=== PATIENT | male | born 1970 | race Two or more races ===

== ENCOUNTER 2025-02-17 10:54 | Emergency (ER) | payer OTHER, SELFPAY ==
[2025-02-17 10:55] VITALS: BMI 39.9
[2025-02-17 11:23] VITALS: BP 168/102; PULSE 83; RESP 18; TEMP 37.2; O2SAT 96
--- NOTE | 2025-02-17 11:28 | XR_ITS ---
Examination: CT brain head without contrast. 2-D sagittal coronal reconstructions Date and time of exam:February 17, 2025, 1134 hours INDICATIONS: Injury to the head today followed by pain and dizziness CTDI: vol (mGy):59 DLP: (mGycm):1297 Technique: Multiple CT axial sections of the brain have been obtained, 5 mm slice thickness. Contrast has not been administered. 2-D sagittal, coronal reconstructions have been obtained Low dose protocols were performed. One or more of the following dose reduction techniques were used; automated exposure control, adjustment of the mA and/or KV according to patient size, use of iterative reconstruction technique. Findings: No significant ventricular enlargement. Intra-axial or extra-axial hemorrhage density is not seen. No mass effect or midline shift Basal cisterns are not remarkable. Fourth ventricle is midline. Cranial vault intact. Impression: Negative for acute hemorrhage, mass effect or midline shift Advise clinical correlation follow-up accordingly
--- NOTE | 2025-02-17 11:28 | PD.EDHEAD ---
ED Head Injury RME/HPI General Chief complaint: Head Injury Stated complaint: [facility] INJURY THURSDAY, HIT IN HEAD Time Seen by Provider: 02/17/25 11:06 Arrival date/time: 02/17/25 10:54 RME / HPI RME / HPI Narrative: 54-year-old male patient came in for evaluation regarding headache. Patient sustained close head injury while working, heavy door fell onto his head, sustaining abrasion to the forehead. Patient complaining of dizziness, headache, since then. Denies any neck pain. Denies any other complaints. Went to work today and wants sent to us for further evaluation. Patient is ambulatory. Patient not take any blood thinner. Related Data Previous Rx's ?Medication ?Instructions ?Recorded metoprolol succinate 100 mg 100 mg PO .bedtime #30 ea 01/11/24 capsule sprinkle, ext. release 24 hr ibuprofen 800 mg tablet 800 mg PO Q8H PRN pain #30 tabs 02/17/25 Allergies Allergy/AdvReac Type Severity Reaction Status Date / Time latex Allergy Severe Rash Verified 02/17/25 10:56 Review of Systems Review of Systems Narrative Review of Systems: Review of system reviewed and within normal limits except mentioned in HPI ED Exam Narrative Physical exam: VITAL SIGNS: Reviewed. GENERAL APPEARANCE: Alert and interactive, follows commands, no acute distress, HEAD AND FACE: Abrasion noted to the top of the head and forehead with tenderness no swelling no hematoma ENT: PERRL, pink conjunctivitis, eyelid no trauma, Mucous membrane moist. NECK: Supple, nontender, no nuchal rigidity. CHEST: No tenderness, no crepitus, no paradoxical movement, no retractions. LUNGS: Clear, well ventilated, symmetric, no rales, no wheezing, no ronchi, no stridor, good breath sounds bilaterally. HEART: Regular rate, regular rhythm, no murmur, no gallops. ABDOMEN: Soft, positive bowel sounds, nondistended, no guarding, nontender, no rebound, no masses, RECTAL: Deferred. GENITAL: Deferred. NEUROLOGICAL: Gross motor function intact sensory function intact, Appropriate for age. MUSCULOSKELETAL: low back nontender, full range of motion. EXTREMITIES: Nontender, full range of motion. SKIN: Color pink, dry, no rash, no lacerations, no abrasions, no contusions. LYMPHATICS: Deferred. Course Quality Measures none Orders Category Date Time Status CT head/brain wo con Stat Exams 02/17/25 11:28 Completed Acetaminophen Tab [Tylenol ES Tab] Med 02/17/25 11:28 Discontinued 1,000 mg PO X1 ONE Vital Signs Vital signs: Vital Signs Temperature 99 F 02/17/25 11:23 Pulse Rate 83 02/17/25 11:23 Respiratory Rate 18 02/17/25 11:23 Blood Pressure 168/102 H 02/17/25 11:23 Pulse Oximetry (%) 96 02/17/25 11:23 Oxygen Delivery Method Room Air 02/17/25 11:23 Head Injury MDM Narrative MDM Narrative:: 54-year-old male patient came in for evaluation regarding headache. Patient sustained close head injury while working, heavy door fell onto his head, sustaining abrasion to the forehead. Patient complaining of dizziness, headache, since then. Denies any neck pain. Denies any other complaints. Went to work today and wants sent to us for further evaluation. Patient is ambulatory. Patient not take any blood thinner. CT scan of the head came back unremarkable. Results discussed with the patient. Patient is ambulatory. Patient appears nontoxic and hemodynamically stable .Decision to discharge the patient. The patient/family was given an opportunity to ask questions and understood their discharge instructions. Discharge instructions specifically included follow up provider and time frame, current and/or new medications and possible side effects, indications for sooner follow up or return to the emergency department, and the expected course of current diagnosis. CT scan of the head all came back unremarkable. Results discussed with the patient. Patient reports feeling better as well and giving evidence of significant clinical improvement, I believe patient is now a candidate for discharge. Patient data External records reviewed:: None Clinical information provided by:: patient Social determinants that could affect healthcare access:: none Patient has the following chronic illnesses:: None How is presenting disease/condition affected by chronic disease/condition?: no chronic disease Evaluation data The following diagnostics were reviewed and interpreted by me:: radiology exam(s) Lab and/or radiology exams considered but not ordered:: None Interpretation Summary: See results MDM Medications / Prescriptions Medications or Prescriptions considered but not ordered:: None Medication administrations:: Medication Administration History Discontinued Medications Acetaminophen (Acetaminophen 500 Mg Tablet) 1,000 mg PO X1 ONE Stop: 02/17/25 11:29 Last Admin: 02/17/25 11:48 Dose: 1,000 mg Documented By: Tylenol Consultations Consultation(s) initiated? (list below): No Diagnosis Differential diagnosis head injury: closed head injury, subarachnoid hematoma and subdural hematoma Most likely diagnosis given after review of the tests above:: Close head injury Admission Indicated Admission indicated?: not indicated Admission Request Was there a request for admission?: No Disposition Plan Disposition Plan: Discharge Discharge Attestation Discharge Attestation: The patient was given an opportunity to ask questions and understood the discharge instructions. Discharge instructions specifically effects, indications for sooner follow up or return to the emergency department, and the expected course of current diagnosis. Patient condition: Stable Discharge Plan Plan Patient Disposition: HOME (Self Care) Discharge Disposition comment: Stable Prescriptions/Referrals Prescriptions/Med Rec: New ibuprofen 800 mg tablet 800 mg PO Q8H PRN (Reason: pain) Qty: 30 0RF No Action metoprolol succinate 100 mg capsule,sprinkle,ER 24hr 100 mg PO .bedtime Qty: 30 1RF Referrals: Rebecca Maynard PA-C [Primary Care Provider] - In 1 week Problem List Clinical Impression: Closed head injury Patient/Caregiver Discharge Instructions Discharge Activity: activity as tolerated Education Materials: ED Head Injury (Adult) Additional Instructions: Thank you for the opportunity for serving you today. You are stable for discharged . You are advised to: Follow-up with your PCP in 1 to 2 days Return to ED for worsening of symptoms Increase oral fluids Take medication as prescribed Print Language: Bulgarian Stand Alone Forms: Elaine Award Info., Patient Portal Info Letter FARA Supervising Physician FARA Supervising Physician: MD Robina
[2025-02-17] MEDS: ACETAMINOPHEN 500 MG TABLET 1000 MG PO (11:48)
== END 2025-02-17 13:09 | disposition home or self-care (01) ==
PROVIDERS: Emergency Provider Family Medicine; PCP Physician Assistant
DX: S00.81XA Abrasion of other part of head, initial encounter (principal); R42 Dizziness and giddiness; W20.8XXA Other cause of strike by thrown, projected or falling object, initial encounter; Y92.59 Other trade areas as the place of occurrence of the external cause; Y99.0 Civilian activity done for income or pay
CPT/HCPCS: 70450; 99283; A9270